=== PATIENT | male | born 1955 | race Caucasian/White ===

== ENCOUNTER → 2023-01-20 | Outpatient (CLI) | payer MEDICARE, SELFPAY ==
--- NOTE | 2023-01-20 08:29 | MRI_ITS ---
STUDY: MRI THORACIC SPINE WITHOUT CONTRAST REASON FOR EXAM: Male, 67 years old. UPPER BACK Pain, pain between shoulder blades, numbness left arm, pain up into neck TECHNIQUE: Standardized fat and water weighted pulse sequences were obtained in the sagittal and axial planes. COMPARISON: None. FINDINGS: Normal kyphosis of the thoracic spine. There is no substantial scoliosis. T1-2, T2-3, T3-4, T4-5, T5-6, T6-7, T7-8, T8-9, T9-10, T10-11, T11-12: Prominent T3 benign vertebral body hemangioma. Minimal loss of the T6, T7, T8 and T9 vertebral body heights are presumably from remote injury. Normal remaining thoracic vertebral body heights. Normal thoracic disc space heights. Normal central canal and bilateral intervertebral neural foramina.There is old anterior wedge compression fracture of the upper L1 vertebral body. Abnormal T2 hyperintensity of the thoracic spinal cord at T6-T7 disc space level down to upper T9 vertebral body level without cord expansion. Normal conus medullaris that terminates at the T12-L1 disc space level.. The soft tissue structures are unremarkable. MRI/Spine Thoracic (Routine) IMPRESSION: 1. 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 There is no associated Chiari I anomaly when correlated with the sagittal senior applications architect of the thoracic spine that included the cervical spine. MRI with intravenous contrast of the thoracic spine will help confirm benign and not neoplastic syrinx. 2. Prominent T3 benign vertebral body hemangioma. 3. No MRI evidence of thoracic extruded disc fragment, disc protrusion or spinal stenosis. Electronically Signed: Dominik Pinzon MD at 15:37 EDT ,
== END | disposition home or self-care (01) ==
PROVIDERS: Referring Provider Nurse Practitioner Family; Visit Provider Nurse Practitioner Family
DX: M54.9 Dorsalgia, unspecified (principal)
CPT/HCPCS: 72146